=== PATIENT | male | born 1970 | race Caucasian/White ===

== ENCOUNTER 2021-03-04 12:20 | Outpatient (REF) | payer OTHER, SELFPAY ==
[2021-03-04 14:27] LABS: Erythrocyte Sedimentation Rate 2 MM/HR (0-15)
[2021-03-05 16:57] LABS: Lyme Abs Screen <0.90 index
[2021-03-08 03:32] LABS: Acetylcholine Recept. Blocking <15 (<15)
[2021-03-08 19:16] LABS: Acetylcholine Recep Modulating 19
[2021-03-08 23:36] LABS: Acetylcholine Receptor Binding <0.30 nmol/L
== END 2021-03-04 12:21 | disposition home or self-care (01) ==
LOC: HO.LAB 12:20
PROVIDERS: Visit Provider Psychiatry & Neurology Neurology
DX: H53.2 Diplopia (principal); M25.50 Pain in unspecified joint
CPT/HCPCS: 36415; 82550; 83519; 85652; 86617; 86618

== ENCOUNTER 2021-05-06 11:42 | Outpatient (REF) | payer OTHER, SELFPAY ==
[2021-05-06 12:34] LABS: Anion Gap 7 (12-20); Blood Urea Nitrogen 13 mg/dL (9-16); Calcium 9.2 mg/dL (8.4-10.2); Carbon Dioxide 27 mmol/L (22-29); Chloride 108 mmol/L (96-108); Estimated Glomerular Filt Rate > 60; Glucose Random 94 mg/dL (60-115); Potassium 4.4 mmol/L (3.3-5.1); Rheumatoid Factor < 15.0 IU/mL (<15.0); Sodium 138 mmol/L (135-145)
[2021-05-08 08:30] LABS: Lyme Abs Screen <0.90 index
== END 2021-05-06 11:43 | disposition home or self-care (01) ==
LOC: HO.LAB 11:42
PROVIDERS: Visit Provider Psychiatry & Neurology Neurology
DX: M54.16 Radiculopathy, lumbar region (principal)
CPT/HCPCS: 36415; 80048; 82550; 86431; 86617; 86618

== ENCOUNTER 2021-07-11 14:35 | Outpatient (REF) | payer OTHER, SELFPAY ==
--- NOTE | ~2021-07-11 | XR_ITS ---
EXAMINATION: XR HIP, LEFT CLINICAL INFORMATION: Lumbar radiculopathy COMPARISON: None TECHNIQUE: Two views of the left hip. FINDINGS: No fracture or dislocation. Left hip alignment is anatomic with relatively maintained joint space. Mild symphysis pubis degeneration. Visualized pelvic bones are intact.. XR/XR hip LT min 2V IMPRESSION: No acute osseous abnormality
--- NOTE | ~2021-07-11 | XR_ITS ---
EXAMINATION: XR SACROILIAC JOINTS CLINICAL INFORMATION: Lumbar radiculopathy. COMPARISON: None TECHNIQUE: 3 views of the sacroiliac joints FINDINGS: No fracture. Alignment is anatomic. Mild symphysis pubis degeneration. Sacroiliac joint spaces are well-maintained without erosions or surrounding sclerosis. XR/XR sacroiliac joint 1-2V IMPRESSION: Normal sacroiliac joints.
== END 2021-07-11 14:36 | disposition home or self-care (01) ==
LOC: HO.XRAY 14:35
PROVIDERS: Visit Provider Psychiatry & Neurology Neurology
DX: M54.16 Radiculopathy, lumbar region (principal)
CPT/HCPCS: 72200; 73502

== ENCOUNTER 2024-05-01 12:27 | Outpatient (REF) | payer OTHER, SELFPAY | END 2024-05-01 12:28 | disposition home or self-care (01) | LOC: HO.SH 12:27 | PROVIDERS: Visit Provider Pediatrics | DX: Z01.118 Encounter for examination of ears and hearing with other abnormal findings (principal); H90.3 Sensorineural hearing loss, bilateral; H93.13 Tinnitus, bilateral | CPT/HCPCS: 92557 ==